=== PATIENT | female | born 1955 | race Caucasian/White ===

== ENCOUNTER 2016-06-08 10:33 | Emergency (ER) | payer MEDICAID ==
--- NOTE | 2016-06-08 14:59 | RAD ---
INDICATION: Pain and swelling. COMPARISON: None TECHNIQUE: Duplex interrogation of the Lowerextremity was performed. FINDINGS: Deep veins: The common femoral, great saphenous, profunda femoris, proximal, mid, and distal deep femoral, popliteal, posterior tibial, and peroneal veins are patent. There is normal compressibility, augmentation, and phasic flow. Superficial veins: There are no findings of superficial thrombophlebitis. Popliteal fossa:There is no evidence of a popliteal cyst. Soft tissues:There are no soft tissue abnormalities. IMPRESSION: Normal examination. No evidence of deep venous thrombosis
--- NOTE | 2016-06-18 11:54 | ED ---
Luis Alberto Reeves Janilya, robibed for Quin Adame MD on 06/08/16 at 1509 . Lower Extremity - HPI Summary HPI Summary: A 60 y/o female came in to [facility] presenting w/ a gradual onset of constant leg pain starting Pain is described as "jelly horse" in left calf. Pain feels different from DVT she has had in the past. October 2015, Zeralto for 6 months. Medication was stopped for knee surgery. SHx tobacco use. PMHx DM. FMHx DM muscle strain tenderness of left calf, no erythema. - History of Current Complaint Chief Complaint: EDExtremityLower Stated Complaint: LT LEG / POSS BLOOD CLOT Pain Intensity: 9 PMH/Surg Hx/FS Hx/Imm Hx Infectious Disease History: No Infectious Disease History: Denies: Traveled Outside the [place] in Last 30 Days Review of Systems Positive: no symptoms reported Musculoskeletal: Other Positive: Myalgia Skin: Negative Neurological: Negative Psychological: Normal All Other Systems Reviewed And Are Negative: Yes Physical Exam Vital Signs On Initial Exam: Initial Vitals Temp Pulse Resp BP Pulse Ox 97.6 F 87 16 136/96 100 06/08/16 11:31 06/08/16 11:31 06/08/16 11:31 06/08/16 11:31 06/08/16 11:31 Diagnostics - Vital Signs Vital Signs Temp Pulse Resp BP Pulse Ox 06/08/16 11:31 97.6 F 87 16 136/96 100 - Laboratory Lab Statement: Any lab studies that have been ordered have been reviewed, and results considered in the medical decision making process. Lower Extremity Course/Dx - Diagnoses Provider Diagnoses: Muscle strain Discharge - Discharge Plan Condition: Stable Disposition: HOME Patient Education Materials: Muscle Strain (ED) Additional Instructions: Follow up with your primary care provider if symptoms persist or worsen. The documentation as recorded by the Luis Alberto atkinson Janilya accurately reflects the service I personally performed and the decisions made by , Quin Adame MD.
== END 2016-06-08 15:40 | disposition home or self-care (01) ==
LOC: ED 10:33
DX: S86.912A Strain of unspecified muscle(s) and tendon(s) at lower leg level, left leg, initial encounter (principal); X58.XXXA Exposure to other specified factors, initial encounter; Y93.9 Activity, unspecified; Y92.9 Unspecified place or not applicable
CPT/HCPCS: 99281